=== PATIENT | female | born 1960 | race Caucasian/White ===

== ENCOUNTER 2018-02-11 03:11 | Emergency (ER) | payer MEDICARE ==
[2018-02-11 03:33] VITALS: BP 136/78; PULSE 84; RESP 16; TEMP 98.5
--- NOTE | 2018-02-11 04:14 | ED ---
Alcohol HPI - General Chief Complaint: Alcohol Stated Complaint: ETOH Time Seen by Provider: 02/11/18 03:55 Source: patient Mode of arrival: ambulatory Limitations: no limitations - History of Present Illness Initial Comments: Mary is a 57-year-old alcoholic female who presents to the emergency department today in police custody for evaluation of alcohol intoxication. Per the police they were contacted because the patient was outside of her home, her significant other would not allow her into the home states that her alcohol use is been a problem in her relationship and that her significant other is upset with her and will let her come in the home. She denies any complaints and states that she doesn't need to be in the emergency department. - Related Data Home Medications Medication Instructions Recorded Confirmed Albuterol Inhaler [Ventolin Hfa 2 puff INHALATION RT-Q4H PRN 10/29/15 02/26/17 Inhaler] Ascorbic Acid [Vitamin C] 500 mg PO DAILY 02/26/17 02/26/17 Beclomethasone Dipropionate [Qvar 1 puff INHALATION RT-BID PRN 02/26/17 02/26/17 80 mcg] DULoxetine HCL [Cymbalta] 20 mg PO HS 02/26/17 02/26/17 Ergocalciferol [Vitamin D2] 50,000 unit PO GOLDEN 02/26/17 02/26/17 HYDROcodone/APAP 10-325MG [[place] 1 tab PO TID PRN 02/26/17 02/26/17 10-325] Lansoprazole [Prevacid] 30 mg PO DAILY 02/26/17 02/26/17 Previous Rx's Medication Instructions Recorded Hydrocodone/Acetaminophen [[place] 1 each PO Q6HR PRN #12 tab 02/26/17 5-325] Allergies Allergy/AdvReac Type Severity Reaction Status Date / Time gluten AdvReac Nausea Verified 02/11/18 03:32 Review of Systems ROS Statement: Those systems with pertinent positive or pertinent negative responses have been documented in the HPI. ROS Other: All systems not noted in ROS Statement are negative. Past Medical History Past Medical History: COPD, CVA/TIA, Hypertension Additional Past Medical History / Comment(s): CVA at age 48, migranes, insomnia , colon polyps History of Any Multi-Drug Resistant Organisms: None Reported Additional Past Surgical History / Comment(s): bilat cataract removal and intraocular lens implants, coloscopy and polypectomy Past Anesthesia/Blood Transfusion Reactions: No Reported Reaction Past Psychological History: ADD/ADHD, Bipolar, Depression, Schizophrenia Smoking Status: Current every day smoker Past Alcohol Use History: None Reported Past Drug Use History: None Reported - Past Family History Father Additional Family Medical History / Comment(s): Father at age 62 from leukemia. Mother Additional Family Medical History / Comment(s): Other in her 80s from lung cancer. Patient has 7 brothers and sisters and one daughter and patient states she doesn't care and does not know anything about them. General Exam - General Exam Comments Initial Comments: Physical Exam GENERAL: Patient smells of tobacco smoke and alcohol, she is sleeping and noted to be drooling on herself, she wakes easily to voice HENT: Normocephalic, Atraumatic. EYES: PERRL, EOMI PULMONARY: Unlabored respirations. No audible rales rhonchi or wheezing was noted. CARDIOVASCULAR: There is a regular rate and rhythm without any murmurs gallops or rubs. ABDOMEN: Soft and nontender with normal bowel sounds. SKIN: Skin changes in bilateral hands consistent with tobacco abuse : Deferred NEUROLOGIC: Patient sleeping upon initial evaluation but wakes easily is alert oriented 3 Moving all extremities spontaneously MUSCULOSKELETAL: Normal extremities with adequate strength and full range of motion. No lower extremity swelling or edema. No calf tenderness. PSYCHIATRIC: Normal psychiatric evaluation. Limitations: no limitations Limitations: no limitations Course Vital Signs 02/11/18 03:26 Temperature 98.5 F Pulse Rate 84 Respiratory 16 Rate Blood Pressure 136/78 O2 Sat by Pulse 93 L Oximetry Medical Decision Making - Medical Decision Making Patient was seen and evaluated history was obtained from the patient and police Patient initially declined breathalyzer stating that she hasn't done anything wrong. Breath alcohol was obtained, patient will be sober around 8 AM. Patient declines any complaints, declines any workup Regular diet will be ordered, patient sleeping comfortably, bed rails up. Patient care is signed out to Dr. Street at sign out. Patient will be reevaluated for sobriety and discharged home when stable. rested comfortably throughout her ER stay. 8 AM the patient was sober and stable for discharge home. Disposition Clinical Impression: Alcoholic intoxication Disposition: HOME SELF-CARE Instructions: Alcohol Intoxication (ED) Is patient prescribed a controlled substance at d/c from ED?: No Referrals: Aniceto Holder MD [Primary Care Provider] - 1-2 days
== END 2018-02-11 09:00 | disposition home or self-care (01) ==
LOC: EC 03:11
DX: F10.120 Alcohol abuse with intoxication, uncomplicated (principal); J44.9 Chronic obstructive pulmonary disease, unspecified; F32.9 Major depressive disorder, single episode, unspecified; F17.200 Nicotine dependence, unspecified, uncomplicated; Z86.73 Personal history of transient ischemic attack (TIA), and cerebral infarction without residual deficits; Z86.010 Personal history of colon polyps; Z90.49 Acquired absence of other specified parts of digestive tract; Z98.890 Other specified postprocedural states; Z79.899 Other long term (current) drug therapy; Z91.018 Allergy to other foods
CPT/HCPCS: 99283

== ENCOUNTER → 2020-06-22 | Outpatient (CLI) | payer MEDICARE ==
--- NOTE | 2020-06-22 11:00 | BD ---
EXAMINATION TYPE: Axial Bone Density DATE OF EXAM: 06/22/2020 COMPARISON: 11.09.2015 CLINICAL HISTORY: 59 YR OLD FEMALE .....ICD-10 CODE: N95.1 POST MENOPAUSE Height: 65.4 Weight: 152 FRAX RISK QUESTIONS: Glucocorticoids (More than 3mos): YES (Ex: prednisone, prednisolone, methylprednisolone, dexamethasone, and hydrocortisone). History of Fracture in Adulthood: YES 3. Menopause before 45: AT 45 YRS OLD Current Tobacco Use: YES RISK FACTORS HISTORY OF: History of Wrist Fracture: LT ARM AND WRIST AN ADULT Family History of Osteoporosis: YES, MOTHER WITH HIP FX Postmenopausal woman: YES AT AGE 45 YRS OLD Hyperparathyroidism: NO Adrenal Insufficiency: NO MEDICATIONS: Prednisone or other steroids: YES, SYMBICORT, AND VENTOLIN Additional Medications: LYRICA, NORCO, CYMBALTA, MIRTAZAPINE, MOTRIN, REFLUX MEDS, STATIN FOR CHOLES TEROL, VIT D Additional History: CELIAC DISEASE, ARTHRITIS, REFLUX , CHOLESTEROL, HX OF STROKE, LT SIDE EFFECTED EXAM MEASUREMENTS: Bone mineral densitometry was performed using the Galazar System. Bone mineral density as measured about the Lumbar spine is: ----- L1-L4(G/cm2): 1.023 T Score Values are as follows: ----- L1: -1.4 ----- L2: -1.5 ----- L3: -0.5 ----- L4: -1.9 ----- L1-L4: -1.3 Bone mineral density has: Decreased -2.1% since study of: 11.09.2015 Bone mineral density about the R hip (g/cm2): 0.738 Bone mineral density about the L hip (g/cm2): 0.755 T Score values are as follows: -----R Neck: -2.3 -----L Neck: -1.6 -----R Total: -2.1 -----L Total: -2.0 Bone mineral density has: Decreased -5.3% since study of: 11.09.2015 FRAX%s: THERE IS A 48.4% CHANCE FOR A MAJOR OSTEOPOROTIC FX AND A 10.7% FOR HIP.......PROBABILITY FOR FX IN 10 YRS TIME IMPRESSION: Osteopenia remains present (T Score between -2.5 and -1). Bone density decreased or diminished from p rior. There remains slightly increased risk of fracture and the patient may be considered for treatment. Re-Screen 2-5 years. NOTE: T-SCORE=SD OF THE YOUNG ADULT MEAN.
--- NOTE | 2020-06-23 10:14 | MM ---
Reason for exam: screening (asymptomatic). Last mammogram was performed 4 years and 7 months ago. History: Patient is postmenopausal. Physical Findings: A clinical breast exam by your physician is recommended on an annual basis and results should be correlated with mammographic findings. MG Screening Mammo w CAD Bilateral CC and MLO view(s) were taken. Prior study comparison: November 09, 2015, bilateral MG 3d screening mammo w/cad. August 17, 2014, bilateral MG screening mammo w CAD. The breast tissue is extremely dense which could obscure a lesion on mammography. Benign appearing calcifications in the left breast. ASSESSMENT: Benign, BI-RAD 2 RECOMMENDATION: Routine screening mammogram of both breasts in 1 year.
== END | disposition home or self-care (01) ==
LOC: RADMAMWWP 08:44
PROVIDERS: ATTEND Family Medicine
DX: Z12.31 Encounter for screening mammogram for malignant neoplasm of breast (principal); M85.80 Other specified disorders of bone density and structure, unspecified site
CPT/HCPCS: 77067; 77080

== ENCOUNTER 2020-08-19 14:06 | Emergency (ER) | payer MEDICARE, OTHER ==
[2020-08-19] MEDS ORDERED: HYDROmorphone 0.5 MG/0.5 ML SYRINGE IVP STA ×2 (14:19→15:47)
[2020-08-19] MEDS ORDERED: ONDANSETRON 4 MG/2 ML VIAL IVP STA (14:19)
[2020-08-19 14:21] VITALS: RESP 18; TEMP 98
--- NOTE | 2020-08-19 14:30 | ED ---
Upper Extremity HPI - General Chief Complaint: Extremity Injury, Upper Stated Complaint: Fall/Right hand injury Time Seen by Provider: 08/19/20 14:09 Source: patient, EMS, RN notes reviewed Mode of arrival: EMS Limitations: no limitations - History of Present Illness Initial Comments: This a 59-year-old female presents emergency Department chief complaint right arm injury. Patient states she was sitting in a wheelchair at the night to [place] when she went to get up and states that she tripped over the foot rest. Patient states that she fell onto her right wrist. She does have an abrasion on her nose but denies any headache, loss conscious, dizziness, neck pain. She is [id number]. There is noted deformity to her right wrist. Patient was not given any pain meds prior arrival. - Related Data Home Medications Medication Instructions Recorded Confirmed Albuterol Inhaler [Ventolin Hfa 1 puff INHALATION RT-Q6H PRN 08/19/20 08/19/20 Inhaler] Budesonide/Formoterol Fumarate 2 puff INHALATION RT-BID 08/19/20 08/19/20 [Symbicort 160-4.5 Mcg Inhaler] DULoxetine HCL [Cymbalta] 120 mg PO DAILY 08/19/20 08/19/20 Hydrocodone/Acetaminophen [[place] 1 tab PO Q8H PRN 08/19/20 08/19/20 5-325] Hydrocortisone Cream 1 applic TOPICAL BID 08/19/20 08/19/20 [Hydrocortisone 1% Cream] Ibuprofen [Motrin] 800 mg PO AC-TID 08/19/20 08/19/20 Loratadine 10 mg PO DAILY 08/19/20 08/19/20 Mirtazapine 30 mg PO HS 08/19/20 08/19/20 Pregabalin [Lyrica] 300 mg PO BID 08/19/20 08/19/20 Varenicline [Chantix Starter Pack] See Taper PO DIRECTED 08/19/20 08/19/20 cloNIDine HCL [Catapres] 0.1 mg PO HS 08/19/20 08/19/20 Allergies Allergy/AdvReac Type Severity Reaction Status Date / Time gluten AdvReac Nausea Verified 08/19/20 15:11 Review of Systems ROS Statement: Those systems with pertinent positive or pertinent negative responses have been documented in the HPI. ROS Other: All systems not noted in ROS Statement are negative. Past Medical History Past Medical History: COPD, CVA/TIA, Hypertension Additional Past Medical History / Comment(s): CVA at age 48, migranes, insomnia, colon polyps History of Any Multi-Drug Resistant Organisms: None Reported Additional Past Surgical History / Comment(s): bilat cataract removal and intraocular lens implants, coloscopy and polypectomy Past Anesthesia/Blood Transfusion Reactions: No Reported Reaction Past Psychological History: ADD/ADHD, Bipolar, Depression, Schizophrenia Smoking Status: Current every day smoker Past Alcohol Use History: None Reported Past Drug Use History: None Reported - Past Family History Father Additional Family Medical History / Comment(s): Father at age 62 from leukemia. Mother Additional Family Medical History / Comment(s): Other in her 80s from lung cancer. Patient has 7 brothers and sisters and one daughter and patient states she doesn't care and does not know anything about them. General Exam General appearance: alert, in no apparent distress Head exam: Present: atraumatic, normocephalic, normal inspection Eye exam: Present: normal appearance, PERRL, EOMI. Absent: scleral icterus, conjunctival injection, periorbital swelling ENT exam: Present: normal oropharynx, mucous membranes moist. Absent: normal exam (Small nasal abrasion) Neck exam: Present: normal inspection, full ROM. Absent: tenderness, lymph adenopathy Respiratory exam: Present: normal lung sounds bilaterally. Absent: respiratory distress, wheezes, rales, rhonchi, stridor Cardiovascular Exam: Present: regular rate, normal rhythm, normal heart sounds. Absent: systolic murmur, diastolic murmur, rubs, gallop, clicks Extremities exam: Present: other (Right wrist there is moderate swelling, slight deformity to the distal forearm, wrist region, neurovascular intact tenderness with palpation no tenderness proximal or distal cap refill less than 2 seconds) Neurological exam: Present: alert, reflexes normal. Absent: motor sensory deficit Skin exam: Present: warm, dry, intact, normal color. Absent: rash Course Vital Signs 08/19/20 14:07 Temperature 98 F Pulse Rate 100 Respiratory 18 Rate Blood Pressure 172/95 O2 Sat by Pulse 95 Oximetry Procedures - Orthopedic Splinting/Casting Injury #1 Side: right Upper Extremity Injury Location: short arm, wrist Upper Extremity Immobilizer: volar splint, synthetic pre-padded splint Medical Decision Making - Medical Decision Making X-ray review shows evidence of distal radius fracture case discussed with samir cedeno on-call for orthopedics recommends patient be splinted and will follow-up in office of Dr. Courtney in the morning. Disposition Clinical Impression: Distal radius fracture, right Disposition: HOME SELF-CARE Condition: Stable Instructions (If sedation given, give patient instructions): Arm Fracture in Adults (ED) Additional Instructions: Please return to the Emergency Department if symptoms worsen or any other concerns. Is patient prescribed a controlled substance at d/c from ED?: No Referrals: Mars Lane MD [Primary Care Provider] - 1-2 days Vick Courtney DO [Doctor of Osteopathic Medicine] - 1-2 days Time of Disposition: 15:41
--- NOTE | 2020-08-19 15:18 | XR ---
EXAMINATION TYPE: XR wrist complete RT DATE OF EXAM: 08/19/2020 CLINICAL HISTORY: Pain after fall injury. TECHNIQUE: Frontal, lateral and oblique images of the right wrist are obtained. 4 view scaphoid vie w is performed. COMPARISON: Right wrist x-ray dated 05/01/2014. FINDINGS: Demineralization is present. Acute comminuted impacted intraarticular fracture distal rad ius with dorsal angulation of distal fracture fragment is present. Carpal joint spaces are preserved. Age indeterminate 7 mm avulsion type fracture from ulnar styloid is fairly well corticated but new f rom 2015 study. Focal mild to moderate soft tissue swelling or deformity noted. IMPRESSION: There is acute comminuted impacted intra-articular fracture distal radial meta-epiphysis .
[2020-08-19] MEDS ORDERED: ACET/COD 300 MG/30 MG STARTER PACK 6 TAB BTL PO STA (15:41)
[2020-08-19 16:03] VITALS: BP 153/86; PULSE 80
== END 2020-08-19 16:06 | disposition home or self-care (01) ==
LOC: EC 14:06
DX: S52.571A Other intraarticular fracture of lower end of right radius, initial encounter for closed fracture (principal); S00.31XA Abrasion of nose, initial encounter; J44.9 Chronic obstructive pulmonary disease, unspecified; I10 Essential (primary) hypertension; F31.9 Bipolar disorder, unspecified; F17.200 Nicotine dependence, unspecified, uncomplicated; Z86.73 Personal history of transient ischemic attack (TIA), and cerebral infarction without residual deficits; Z79.51 Long term (current) use of inhaled steroids; Z79.899 Other long term (current) drug therapy; Z91.048 Other nonmedicinal substance allergy status
CPT/HCPCS: 29125; 96374; 96375; 96376; 99283

== ENCOUNTER 2020-08-21 11:59 | Day surgery (SDC) | payer MEDICARE ==
[2020-08-20 14:08] VITALS: BMI 22.8
--- NOTE | 2020-08-21 08:47 | P.HPOR ---
History of Present Illness H&P Date: 08/20/20 Chief Complaint: Right wrist pain 59 yo female sustained a ffs on 08/19/20 and presented to the ED at [facility] for evaluation. She c/o wrist pain and deformity. Stated that she tripped and fell onto her wrist. Denied any LOC or BHT. Right wrist pain with deformity noted. She is RHD. She stated she broke this wrist when she was young and just broke her left wrist 2 years ago. She was evaluated in the ED and sent home in a splint. She presents today in the office for evaluation. She has a well fitted splint in place. She c/o pain in her wrist as well as some decreased sensation in the tips of her fingers. The splint was loosened and she stated this helped. She denies any other injury. No other symptoms. Denies any f/c/sob/cp at this time. Review of Systems 14 points review of systems completed and as stated in HPI, all other systems reviewed are negative. Past Medical History Past Medical History: COPD, CVA/TIA, Hypertension Additional Past Medical History / Comment(s): current fx rt wrist, arm in halfcast with patt wrap, CVA at age 48, states has some issues with memory and writing since, past hx of migraines, insomnia, colon polyps History of Any Multi-Drug Resistant Organisms: None Reported Additional Past Surgical History / Comment(s): bilat cataract removal and intraocular lens implants, colonoscopy and polypectomy Past Anesthesia/Blood Transfusion Reactions: No Reported Reaction Smoking Status: Current every day smoker - Past Family History Father Additional Family Medical History / Comment(s): Father at age 62 from leukemia. Mother Additional Family Medical History / Comment(s): Other in her 80s from lung cancer. Patient has 7 brothers and sisters and one daughter and patient states she doesn't care and does not know anything about them. Medications and Allergies Home Medications Medication Instructions Recorded Confirmed Type Albuterol Inhaler [Ventolin Hfa 1 puff INHALATION RT-Q6H PRN 08/19/20 08/20/20 History Inhaler] Budesonide/Formoterol Fumarate 2 puff INHALATION RT-BID 08/19/20 08/20/20 History [Symbicort 160-4.5 Mcg Inhaler] DULoxetine HCL [Cymbalta] 120 mg PO QAM 08/19/20 08/20/20 History Hydrocodone/Acetaminophen [[place] 1 tab PO Q8H PRN 08/19/20 08/20/20 History 5-325] Hydrocortisone Cream 1 applic TOPICAL BID 08/19/20 08/20/20 History [Hydrocortisone 1% Cream] Ibuprofen [Motrin] 800 mg PO AC-TID 08/19/20 08/20/20 History Loratadine 10 mg PO DAILY 08/19/20 08/20/20 History Mirtazapine 30 mg PO HS 08/19/20 08/20/20 History Pregabalin [Lyrica] 300 mg PO BID 08/19/20 08/20/20 History Varenicline [Chantix Starter Pack] See Taper PO DIRECTED 08/19/20 08/20/20 History cloNIDine HCL [Catapres] 0.1 mg PO HS 08/19/20 08/20/20 History Allergies Allergy/AdvReac Type Severity Reaction Status Date / Time gluten AdvReac Nausea Verified 08/20/20 13:59 Physical Examination Osteopathic Statement: *. No significant issues noted on an osteopathic structural exam other than those noted in the History and Physical/Consult. Patient is alert and oriented 3 appears well-nourished well-hydrated is in no acute distress. They does not appear septic. On exam the patient has no tenderness to palpation of her thoracic or lumbar spine. There is no edema or ballottement sign. They have good strength in her lower extremities with 5 out of 5 dorsiflexion plantar flexion EHL and FHL bilaterally. Upper extremities s how 5/5 strength in all major muscle groups. There is FROM that is painless of the b/l UE and LE in all major joints. They are intact to light touch sensation in L2 to S1 nerve distribution. Patient has palpable dorsalis pedis was posterior tibial pulses. Compartments are soft and compressible. Patient shows a negative Homans, Garcia's, negative Babinski's negative clonus bilaterally. negative straight leg raise bilaterally. No tensioning signs.Cranial nerves II through XII are grossly intact. Overall alignment is well-maintained in the sagittal coronal planes. [place] extremity exam. Right upper extremity is in a splint that is well formed and well molded. Patient has brisk capillary refill in all fingers. She is able to move DIP joints of all fingers. She does complain of some decreased 2 point and pinprick sensation in the index and thumb. The splint was loosened and she stated that this helped a little bit. She denies any other numbness or tingling. She denies any fevers chills shortness of breath or chest pain. She has some swelling about her fingers. Results Right wrist films demonstrate a intra-articular distal radius fracture that is dorsally displaced comminuted and dorsally angulated about 20. There is also a fracture line that extends proximally from the metadiaphyseal region approximately 5 cm. Is only visible on one view however is likely a propagation of the fracture proximally. No other fractures or dislocations are identified no other bony prominence abnormalities. Assessment and Plan Assessment: 59-year-old female status post fall from standing right distal radius fracture, intra-articular, closed, 2 part, comminuted, displaced Plan: Orthopedic Surgery Risk Review Mary Quiroz is a 59-year-old [id number] female presenting for evaluation of sudden onset wrist pain pain, inability to bear weight after a fall from standing onto her right wrist. It was my pleasure to have seen and examined Mary Quiroz . In our visit today we have had a chance to go over subjective complaints, physical examination findings and treatments including the natural course history without intervention and various interventional options. Her imaging demonstrates right distal radius fracture. On physical exam, Mary Quiroz demonstrates pain with motion of extreme pain, which is NV intact at this time. I have explained to the patient that this fracture needs stabilization. Based on the patients imaging, physical exam, and the rapid progression and disabling nature of her symptoms, at this time I recommend surgery in the form or a: ORIF right distal radius I discussed the risk and benefits of this procedure at length with Mary Quiroz . Questions were invited and answered, and the patient wishes to proceed as outlined below. Currently, I am recommendin. Open reduction and internal fixation right distal radius 2. Review of surgical risks and benefits as well as an educational packet on the proposed surgical procedure. Risks: All surgical procedures come with inherent risks, including those related to positioning, anesthesia, intraoperative findings, and postoperative complications. It is important to understand that surgery does not come with any guarantee of a successful outcome as complications and adverse events are always possible. The patient was given a handout discussing the surgical procedure and risks associated with the intervention, both of which were discussed with the patient. These risks include but are not limited to the following: - Experiencing same, different or even worse symptoms compared to before surgery. - Requiring further surgery or other forms of treatment presently or at some time in the future . - On an extreme but fortunately relatively rare basis severe complication such as blindness, stroke, heart attack, temporary and/or permanent nerve injury, paralysis, coma, or may occur, sometimes without known explanation. - Surgical complications may include but are not limited to risk of infection, fluid accumulation in the surgical dissection site, including a seroma or hematoma, that requires additional surgery, wound drainage, bleeding, new numbness or weakness, vision changes/loss, spinal fluid leakage, non-healing and/or infected incision, headaches, difficulty or inability to swallow, hoarseness, hemopneumothorax, pneumothorax, injury to nerves, spinal cord, blood vessels, lymphatics or other vital organs (i.e., bowel injury, injury to the great vessels); heterotopic bone formation; complications related to the hardware such as screws, rods, including misplaced hardware, device failure, hardware fracture/breakage, or hardware loosening; retained surgical instrumentations or devices and the need for further surgery. - Medical risks of the planned surgery include but are not limited to generalized Infections to the whole body or local areas outside of the surgical site (sepsis), heart attack, bleeding, anaphylaxis, meningitis, seizure, epilepsy, hearing loss, burn bowen, laceration of the head or other areas of the body, bruising, hypersensitivity of the skin, bladder over distension; allergic reaction; shoulder injury related to positioning; fat, blood and air clots to other areas of the body like heart, lungs, brain; failure of internal organs such as lungs, kidneys, liver and excessive bleeding. If blood transfusions are necessary, note that transfusions may cause intolerance reactions such as anaphylaxis or other complex reactions. Despite best efforts, the results of surgery might not heal in terms of bone, soft tissues such as skin, fascia, ligaments, and joints. [facility] is an educational center that serves as a training facility for physician assistants, nurses, orthopedic residents and fellows. Residents are physicians who are completing their surgical intensive training following medical school. They assist in the operating room with direct supervision of the attending surgeons. [place] are surgeons who have completed their training and eligible for board certification. They have opted for an elective year of more specialized training in their field. They assist in the operating room under the supervision of the attending surgeons. Physician assistants are [place] dically trained surgical providers who function in the outpatient, inpatient, and operating room setting under the direct supervision of the attending surgeon. [facility] has multiple operating rooms with single and overlapping rooms running daily. They currently function under the required guidelines as produced by the [facility] Finance Committee with regards to the overlapping rooms and will continue to comply with changes to this policy as they occur. The requirements include and are complied with as follows: (1) the critical portions of the overlapping rooms will not occur at the same time, (2) the attending physician will be physically present during the critical portions of the procedure and immediately available during the entire case, and (3) a back-up attending is designated should the primary attending not be immediately available. The patient has had a chance to review all the listed information, has been given print outs detailing this information, and has had all his/her questions answered to their satisfaction. It was my pleasure to have seen and examined Mary Quiroz . In our visit today we have had a chance to go over my understanding of our patient's current condition, the natural course history without intervention and various interventional options. Questions were invited and answered, and the patient wishes to proceed as outlined above. I have seen and examined the patient for 25 minutes and we have spent more than 50% of the time in repeat and detailed counseling about the patient's condition, its natural course history with out and as much as can be predicted with surgery and re-review of various surgical treatment options. In conclusion, Mary Quiroz requested we proceed with the above suggested surgery and are willing to accept risks and limitations of the suggested surgery as nature of the disease process and our best attempts at treatment for the condition. Thank you again for allowing us to be part of your patient's care. Please don't hesitate to contact me if you have any further questions. Signed and authenticated by: Vick Courtney DO [facility] [address] [facility], [address] [address] Time with Patient: Greater than 30
--- NOTE | 2020-08-21 10:07 | XR ---
EXAMINATION TYPE: XR chest 1V DATE OF EXAM: 08/21/2020 COMPARISON: Chest x-ray 09/02/2015 HISTORY: Preop testing TECHNIQUE: Single frontal view of the chest is obtained. FINDINGS: There is underlying emphysema. Prominent lung volumes are again noted. Cardiac mediastinal silhouette is stable. No evident airspace disease, pneumothorax, or pleural effusion. IMPRESSION: Emphysema
[2020-08-21 10:54] LABS: African American GFR (CKD) >90 (>60 ml/min/1.73 sqM); Anion Gap 7 mmol/L; Blood Urea Nitrogen 16 mg/dL (7-17); Carbon Dioxide 23 mmol/L (22-30); Chloride 102 mmol/L (98-107); Non-African American GFR(CKD) >90 (>60 ml/min/1.73 sqM); Potassium 4.8 mmol/L (3.5-5.1); Sodium 132 mmol/L (137-145)
[2020-08-21 10:58] LABS: Anisocytosis Moderate; Basophils % (A) 1 %; Eosinophils # (A) 0.1 k/uL (0-0.7); Eosinophils % (A) 2 %; HCT 31.7 % (34.0-46.0); HGB 9.5 gm/dL (11.4-16.0); Hypochromasia Marked; Lymphocytes # (A) 0.8 k/uL (1.0-4.8); Lymphocytes % (A) 13 %; MCH 22.5 pg (25.0-35.0); MCHC 29.8 g/dL (31.0-37.0); MCV 75.4 fL (80.0-100.0); Mean Platelet Volume 7.7; Microcytosis Marked; Monocytes # (A) 0.6 k/uL (0-1.0); Monocytes % (A) 10 %; Neutrophils # (A) 4.4 k/uL (1.3-7.7); Neutrophils % (A) 72 %; Platelet Count 473 k/uL (150-450); RDW 21.8 % (11.5-15.5); WBC 6.1 k/uL (3.8-10.6)
[2020-08-21 11:04] LABS: INR 0.9 (<1.2); Prothrombin Time 10.2 sec (9.0-12.0)
[~2020-08-21 11:59] MED LIST: ACETAMINOPHEN TAB 500 MG TAB PO PRN; ONDANSETRON 4 MG/2 ML VIAL IVP PRN; fentaNYL (PF) 50 MCG/ML 2 ML AMP IVP ONE
[2020-08-21] MEDS ORDERED: MIDAZOLAM 2 MG/2 ML VIAL ONE (12:11)
[2020-08-21] MEDS ORDERED: ROPIVACAINE 5 MG/ML 30 ML VIAL ONE (12:11)
[2020-08-21] MEDS ORDERED: LIDOCAINE 1% INJ 10MG/ML (20 ML MDV) ONE (12:11)
[2020-08-21] MEDS ORDERED: LIDOCAINE 2%-EPI 1:100,000 20 ML VIAL ONE (12:11)
[2020-08-21] MEDS ORDERED: PROPOFOL 10 MG/ML 20 ML VIAL IV ONE (12:11)
[2020-08-21] MEDS ORDERED: fentaNYL (PF) 50 MCG/ML 2 ML AMP ONE (12:11)
[2020-08-21] MEDS ORDERED: SUCCINYLCHOLINE CHLORIDE 100 MG/5 ML SYR IV ONE (12:11)
[2020-08-21] MEDS ORDERED: IV FLUID CONTINUATION 1,000 ML IV ONE (12:14)
[2020-08-21] MEDS ORDERED: LACTATED RINGERS 1,000 ML IV ONE (13:07)
[2020-08-21 15:22] VITALS: RESP 16; TEMP 98.1
--- NOTE | 2020-08-21 15:54 | P.ANPRN ---
Procedure Note - Anesthesia - Nerve Block Performed Right Supraclavicular Single Time Out Performed: Yes Date of Procedure: 08/21/20 Procedure Start Time: 11:34 Procedure Stop Time: 11:42 Location of Patient: PreOp Indication: Requested by Surgeon Specifically requested for management of pain by DrChris: Vick Courtney Sedation Type: Awake Preparation: Sterile Prep Position: Supine Needle Types: Pajunk Needle Gauge: 21 Ultrasound used to visualize needle placement: Yes Ultrasound used to observe medication spread: Yes Injectate: 0.5% Ropivacaine (see comment for volume) (15 ml + lidocain 1% with epi 1/100 k 10 ml) Blood Aspirated: No Pain Paresthesia on Injection Noted: No Resistance on Injection: Normal Image Stored and Saved: Yes Events: Uneventful and Well Tolerated
[2020-08-21] MEDS ORDERED: HYDROcodone/APAP 7.5-325MG 1 EACH TAB PO ONE (16:21)
--- NOTE | 2020-08-21 16:26 | P.PN ---
Progress Note - Text Progress Note Date: 08/21/20 Patient was evaluated at bedside in the pediatric unit. She is resting comfortably. She's been up and ambulating, she's use the restroom and no difficulty She is utilizing the splint with the arm sling at this time. She is able to wiggle the fingers with no difficulty. She does note some tingling in the fingers stil but it is improving Patient stable for discharge home today. She has [place] 7.5 mg/325 mg as prescribed in the office yesterday. Splint instructions along with activity le jenni and restrictions were discussed.
--- NOTE | 2020-08-21 16:30 | P.DS ---
Providers Date of admission: 08/21/2020 Expected date of discharge: 08/21/20 Attending physician: Vick Courtney DO Primary care physician: Stated None Hospital Course: Date of admission: 08/21/2020 Date of discharge: 08/21/2020 Admission diagnosis: Right distal radius fracture, closed, intra-articular, displaced, comminuted Discharge diagnosis: Status post ORIF right distal radius fracture Attending physician: Dr. Courtney Surgical procedures: Open reduction internal fixation right distal radius fracture Brief history: Patient is a 59-year-old female who was evaluated in the outpatient setting by Dr. Courtney afternoon injury occurred to her right wrist. Patient was initially seen at [facility], she was determined to have a right distal radius fracture. She was splinted and recommended to follow up with orthopedics. After evaluation in the outpatient setting, was turned surgical fixation would be the best option for the patient. She was scheduled for surgery for 08/21/2020. Hospital course: Details of patient's surgery can be found in operative report. Patient tolerated the procedure well and was subsequently transported to orthopedic floor. Patient reported satisfactory pain control with oral pain medications by postoperative day 0. Patient showed satisfactory progress with physical therapy. Patient moved steadily through the program and had no difficulty meeting the goals by postoperative day 0. Given patient's otherwise satisfactory course and having met physical therapy goals, plan is to discharge patient home on postoperative day 0. Discharge condition/disposition: Patient will be discharged home in stable condition. Discharge medications: Instructions are given on resumption of patient's normal daily medications per primary care recommendation, in addition patient will be prescribed no new medications. Discharge instructions: Utilize arm splint, do not remove splint. Keep splint covered and dry while showering Follow up in office at 2 weeks postop with Benjamin Gonzalez PA-C/Nikhil Lobo PA-C Follow up with your primary care doctor 7-10 days after discharge. Contact [facility] with any questions, . Procedures: Open reduction internal fixation right distal radius fracture Patient Condition at Discharge: Good Plan - Discharge Summary Discharge Rx Participant: Yes New Discharge Prescriptions: No Action Mirtazapine 30 mg PO HS cloNIDine HCL [Catapres] 0.1 mg PO HS Pregabalin [Lyrica] 300 mg PO BID Loratadine 10 mg PO DAILY Ibuprofen [Motrin] 800 mg PO AC-TID Hydrocortisone Cream [Hydrocortisone 1% Cream] 1 applic TOPICAL BID Hydrocodone/Acetaminophen [[place] 5-325] 1 tab PO Q8H PRN PRN Reason: Pain DULoxetine HCL [Cymbalta] 120 mg PO QAM Varenicline [Chantix Starter Pack] See Taper PO DIRECTED Budesonide/Formoterol Fumarate [Symbicort 160-4.5 Mcg Inhaler] 2 puff INHALA TION RT-BID Albuterol Inhaler [Ventolin Hfa Inhaler] 1 puff INHALATION RT-Q6H PRN PRN Reason: Shortness Of Breath Discharge Medication List Albuterol Inhaler [Ventolin Hfa Inhaler] 1 puff INHALATION RT-Q6H PRN 08/19/20 [History] Budesonide/Formoterol Fumarate [Symbicort 160-4.5 Mcg Inhaler] 2 puff INHALATION RT-BID 08/19/20 [History] DULoxetine HCL [Cymbalta] 120 mg PO QAM 08/19/20 [History] Hydrocodone/Acetaminophen [[place] 5-325] 1 tab PO Q8H PRN 08/19/20 [History] Hydrocortisone Cream [Hydrocortisone 1% Cream] 1 applic TOPICAL BID 08/19/20 [History] Ibuprofen [Motrin] 800 mg PO AC-TID 08/19/20 [History] Loratadine 10 mg PO DAILY 08/19/20 [History] Mirtazapine 30 mg PO HS 08/19/20 [History] Pregabalin [Lyrica] 300 mg PO BID 08/19/20 [History] Varenicline [Chantix Starter Pack] See Taper PO DIRECTED 08/19/20 [History] cloNIDine HCL [Catapres] 0.1 mg PO HS 08/19/20 [History] Follow up Appointment(s)/Referral(s): Vick Courtney DO [Doctor of Osteopathic Medicine] - 2 Weeks Activity/Diet/Wound Care/Special Instructions: Discharge instructions: 1. Do not remove the splint, utilize arm sling 2. Keep splint covered and dry while showering 3. Pain medication as needed 4. Ice and elevate often 5. Plan for [facility] at [facility] 2 weeks for recheck Discharge Disposition: HOME SELF-CARE
[2020-08-21 16:35] VITALS: BP 151/74; PULSE 98
--- NOTE | 2020-08-22 08:21 | XR ---
EXAMINATION TYPE: XR wrist limited RT, FL guidance operating room DATE OF EXAM: 08/21/2020 COMPARISON: Plain film 08/19/2020 HISTORY: Fracture Fluoroscopy support supplied to the referring clinician. See dictated report from orthopedic surgery , 52 seconds fluoroscopy time, 3 intraoperative C-arm images document the procedure
--- NOTE | 2020-08-23 09:47 | P.OP ---
Date of Procedure: 08/21/20 Preoperative Diagnosis: Right distal radius fracture, two part, intraarticular, displaced, shortened, closed. Postoperative Diagnosis: Right distal radius fracture, two part, intraarticular, displaced, shortened, closed. Procedure(s) Performed: open reduction and internal fixation of right distal radius Implants: synthese volar distal locking plate Anesthesia: MAC, regional Surgeon: Vick Courtney Intermodal Dispatcher #1: Kali Gonzalez (was present for the entire case and necessary due to the complexity of the case. ) Estimated Blood Loss (ml): 25 IV fluids (ml): 1,000 Urine output (ml): 0 Pathology: none sent Condition: stable Disposition: PACU Indications for Procedure: 59 yo female sustained a ffs on 08/19/20 and presented to the ED at [facility] for evaluation. She c/o wrist pain and deformity. Stated that she tripped and fell onto her wrist. Denied any LOC or BHT. Right wrist pain with deformity noted. She is RHD. She stated she broke this wrist when she was young and just broke her left wrist 2 years ago. She was evaluated in the ED and sent home in a splint. She presents today in the office for evaluation. She has a well fitted splint in place. She c/o pain in her wrist as well as some decreased sensation in the tips of her fingers. The splint was loosened and she stated this helped. She denies any other injury. No other symptoms. Denies any f/c/sob/cp at this time. Operative Findings: displaced distal radicus fracture right two part intraarticular. Description of Procedure: The patient was seen and examined in the preoperative area. All preoperative protocols were followed. Informed consent was obtained risks and benefits of the procedure were discussed at length. Risks including bleeding infection damage to the surrounding tissue and risk of reoperation were discussed with the patient. Risk of anesthesia up to and including was a discussed with the patient. These are outlined in the risk reviewed. They were willing to accept these risks and all of the risks of surgery. The patient was given a weight- based dose of antibiotics in the form of 2 g Ancef IVPB 1. The patient was seen and evaluated by the anesthesia team who deemed them fit for surgery. The site was marked, the patient was willing to proceed with the procedure. The patient was transferred to the operative suite by the Department of anesthesia. There were then drifted off to sleep by the department of anesthesia and regional anesthesia with LMA anesthesia was used. Once adequate anesthesia had been obtained the patient was carefully transferred to the operative bed. All bony prominences were padded accordingly. SCDs were placed on the nonoperative lower extremities. Arms were well padded. Right arm was exposed 18 tourniquet was placed on the right upper arm which is well-padded 10:15 drape was placed from this. Patient's arm was placed on arm board. Preoperative briefing was done with the operative team and everyone was ready for the procedure to start. The patients right arm was then prepped and draped in the normal sterile fashion. Timeout was then performed and all parties in agreement with the procedure to be performed. Standard volar [place] approach to the right distal radius was performed. Once we reached the pronator it was incarcerated in the fracture fragment and we had to remove this and release it. Once pronator was released material to reduce the fracture with the [place] elevator. We took AP and lateral x-rays which confirmed good flat fracture reduction. We then placed a radial styloid pin to hold reduction of the fracture. Selected a 6-hole distal radius volar locking plate. This was chosen due to the propagation of the fracture proximally. We then placed this plate under AP and lateral fluoroscopy and it was pinned into position once in position a single shaft screw was placed in the variable hole and locked down. This was confirmed good position on AP lateral fluoroscopy. We then placed a nonlocking screw in the distal row to help with volar tilt on reduction this held a good volar tilt for reduction within drilled and placed under fluoroscopic guidance the distal row with smooth locking pegs. We then replaced the cortical screw with a smooth locking peg in the distal row were then drilled the proximal row and placed smooth locking pegs. These were all confirmed to be in good position and good length and out of the joint on a 30 lateral and on AP and lateral fluoroscopy. We then turned our attention to the shaft for replaced shaft screws measuring each with a depth gauge. Once these were in place and confirmed in good position and locked down to final AP and lateral fluoroscopic images which confirmed good reduction of fracture good placement of the hardware. 30 lateral confirmed no intra-articular hardware placement. We then copiously irrigated the wound with normal sterile saline. The wound was then closed with 2-0 Vicryl in a running 2-0 nylon. Tourniquet was released at 60 minutes there is no overt bleeding. Patient placed in a volar splint and dressed sterilely with Adaptic 4 x 4's and Kerlix. The patient was then transferred back to their hospital bed. There were awakened by department of anesthesia having tolerated the procedure very well with no complications. The patient was then transported to the postoperative care unit in stable condition.
== END 2020-08-21 16:59 | disposition home or self-care (01) ==
LOC: OR 11:59 → 6PED 12:04 → OR 16:59
PROVIDERS: ATTEND Orthopaedic Surgery
DX: S52.571A Other intraarticular fracture of lower end of right radius, initial encounter for closed fracture (principal); W01.0XXA Fall on same level from slipping, tripping and stumbling without subsequent striking against object, initial encounter; J44.9 Chronic obstructive pulmonary disease, unspecified; I10 Essential (primary) hypertension; I69.311 Memory deficit following cerebral infarction; G47.00 Insomnia, unspecified; Z86.010 Personal history of colon polyps; Z98.42 Cataract extraction status, left eye; Z98.41 Cataract extraction status, right eye; Z96.1 Presence of intraocular lens; Z98.890 Other specified postprocedural states; F17.200 Nicotine dependence, unspecified, uncomplicated; Z80.6 Family history of leukemia; Z80.1 Family history of malignant neoplasm of trachea, bronchus and lung; Z79.1 Long term (current) use of non-steroidal anti-inflammatories (NSAID); Z79.51 Long term (current) use of inhaled steroids; Z79.899 Other long term (current) drug therapy; Z91.02 Food additives allergy status
CPT/HCPCS: 25608; 64415; 76942; 80051; 82565; 84520; 85025; 85610; 73100; 71045; C1713; J2250; J0690; J2001; J3010; J2795; J0330; J2704; 93005

== ENCOUNTER → 2021-06-25 | Outpatient (CLI) | payer MEDICARE ==
[2021-06-25 14:09] LABS: Basophils # (A) 0.02 X 10*3/uL (0.00-0.10); Basophils % (A) 0.5 %; Eosinophils # (A) 0.05 X 10*3/uL (0.04-0.35); Eosinophils % (A) 1.2 %; HCT 39.7 % (37.2-46.3); HGB 13.3 g/dL (12.0-15.0); Immature Grans, Automated 0.2 %; Lymphocytes # (A) 1.31 X 10*3/uL (0.90-5.00); Lymphocytes % (A) 31.6 %; MCH 30.4 pg (27.0-32.0); MCHC 33.5 g/dL (32.0-37.0); MCV 90.6 fL (80.0-97.0); Monocytes # (A) 0.52 X 10*3/uL (0.20-1.00); Monocytes % (A) 12.5 %; NRBC Per 100 WBC 0 /100 WBCS (0.0-0.0); Neutrophils # (A) 2.24 X 10*3/uL (1.80-7.70); Platelet Count 337 X 10*3/uL (140-440); RBC 4.38 X 10*6/uL (4.10-5.20); RDW 12.3 % (11.5-14.5); WBC 4.15 X 10*3/uL (4.50-10.00)
[2021-06-25 17:30] LABS: ALT 19 U/L (8-44); AST 19 U/L (13-35); African American GFR (CKD) 109.1 (60.0-200.0); Albumin 4.6 g/dL (3.8-4.9); Alkaline Phosphatase 52 U/L (41-126); BUN/Creat Ratio 8.86 Ratio (12.00-20.00); Blood Urea Nitrogen 6.2 mg/dL (9.0-27.0); Carbon Dioxide 24.1 mmol/L (20.0-27.5); Chloride 87 mmol/L (96-109); Chol/HDL Ratio 2.92 Ratio; Glucose 117 mg/dL (70-110); LDL Cholesterol,Calculated 86.9 mg/dL (0.0-131.0); Non-African American GFR(CKD) 94.2 (60.0-200.0); Sodium 122 mmol/L (135-145); Total Protein 6.6 g/dL (6.2-8.2)
== END | disposition home or self-care (01) ==
LOC: LABWHC1 09:59
PROVIDERS: ATTEND Family Medicine
DX: I10 Essential (primary) hypertension (principal); G47.00 Insomnia, unspecified; G62.9 Polyneuropathy, unspecified
CPT/HCPCS: 36415; 80053; 80061; 84443; 85025

== ENCOUNTER → 2021-07-11 | Outpatient (CLI) | payer MEDICARE ==
--- NOTE | 2021-07-13 09:32 | MM ---
Reason for exam: screening (asymptomatic). Last mammogram was performed 1 year and 1 month ago. History: Patient is postmenopausal. Physical Findings: A clinical breast exam by your physician is recommended on an annual basis and results should be correlated with mammographic findings. MG 3D Screening Mammo W/Cad Bilateral CC and MLO view(s) were taken. Prior study comparison: June 22, 2020, bilateral MG screening mammo w CAD. November 09, 2015, bilateral MG 3d screening mammo w/cad. The breast tissue is heterogeneously dense. This may lower the sensitivity of mammography. No significant changes when compared with prior studies. ASSESSMENT: Negative, BI-RAD 1 RECOMMENDATION: Routine screening mammogram of both breasts in 1 year.
== END | disposition home or self-care (01) ==
LOC: RADMAMWWP 16:09
PROVIDERS: ATTEND Family Medicine
DX: Z12.31 Encounter for screening mammogram for malignant neoplasm of breast (principal); Z78.0 Asymptomatic menopausal state
CPT/HCPCS: 77063; 77067

== ENCOUNTER → 2021-11-30 | Outpatient (CLI) | payer MEDICARE ==
[2021-11-30 10:48] LABS: African American GFR (CKD) 115.1 (60.0-200.0); BUN/Creat Ratio 12.47 Ratio (12.00-20.00); Blood Urea Nitrogen 7.3 mg/dL (9.0-27.0); Calcium 9.1 mg/dL (8.7-10.3); Carbon Dioxide 25.2 mmol/L (20.0-27.5); Chloride 91 mmol/L (96-109); Glucose 111 mg/dL (70-110); Non-African American GFR(CKD) 99.3 (60.0-200.0); Potassium 4.5 mmol/L (3.5-5.5); Sodium 127 mmol/L (135-145)
[2021-11-30 12:55] LABS: Appearance,Urine Clear (Clear); Bilirubin,Urine Negative (Negative); Blood,Urine Negative (Negative); Color,Urine Dark Yellow (Yellow); Ketones,Urine Trace mg/dL (Negative); Nitrite,Urine Negative (Negative); Specific Gravity,Urine 1.024 (1.001-1.030)
[2021-11-30 14:23] LABS: Bacteria,Urine None Seen /HPF (None Seen)
== END | disposition home or self-care (01) ==
LOC: LABWHC1 07:59
PROVIDERS: ATTEND Family Medicine
DX: E87.1 Hypo-osmolality and hyponatremia (principal)
CPT/HCPCS: 36415; 80048; 81001; 82024; 82533; 83935; 84300; 84443

== ENCOUNTER → 2022-01-05 | Outpatient (CLI) | payer MEDICARE ==
[2022-01-05 14:55] LABS: HCT 44.7 % (37.2-46.3); HGB 14.4 g/dL (12.0-15.0); MCH 29.2 pg (27.0-32.0); MCHC 32.2 g/dL (32.0-37.0); MCV 90.7 fL (80.0-97.0); Mean Platelet Volume 8.8 fL (9.5-12.2); NRBC Per 100 WBC 0 /100 WBCS (0.0-0.0); Platelet Count 317 X 10*3/uL (140-440); RBC 4.93 X 10*6/uL (4.10-5.20); RDW 12.9 % (11.5-14.5)
[2022-01-05 16:41] LABS: Albumin 4.9 g/dL (3.8-4.9); Albumin/Globulin Ratio 1.98 (1.60-3.17); Anion Gap 11.8 mmol/L (10.00-18.00); BUN/Creat Ratio 8.57 Ratio (12.00-20.00); Blood Urea Nitrogen 5.3 mg/dL (9.0-27.0); Calcium 9.2 mg/dL (8.7-10.3); Carbon Dioxide 24.2 mmol/L (20.0-27.5); Globulin 2.5 g/dL (1.6-3.3); Non-African American GFR(CKD) 97.5 (60.0-200.0); Potassium 4.4 mmol/L (3.5-5.5); Prolactin 6.7 ng/mL (2.800-29.200); T4, Free (Free Thyroxine) 1.43 ng/dL (0.800-1.800); Total Bilirubin 0.3 mg/dL (0.30-1.20); Total Protein 7.4 g/dL (6.2-8.2)
[2022-01-06 10:15] LABS: ACTH <1.50 pg/mL (0.00-45.99)
== END | disposition home or self-care (01) ==
LOC: LABWHC1 10:07
PROVIDERS: ATTEND Internal Medicine Endocrinology, Diabetes & Metabolism
DX: E23.0 Hypopituitarism (principal)
CPT/HCPCS: 36415; 80053; 82024; 82533; 84146; 84305; 84439; 84443; 84480; 85027

== ENCOUNTER → 2022-01-27 | Outpatient (CLI) | payer MEDICARE, OTHER ==
--- NOTE | 2022-01-27 08:52 | MR ---
EXAMINATION TYPE: MR pituitary wo/w con DATE OF EXAM: 01/27/2022 COMPARISON: MRI brain 2012. HISTORY: Hypopituitarism. Abnormal labs. TECHNIQUE: Multiplanar, multisequence images of the brain and brainstem is performed without and with IV contras t, utilizing 6.5 mL intravenous Gadavist . Pituitary gland protocol. FINDINGS: Pituitary gland remains normal in size within the sella turcica. Postcontrast images show n ormal enhancement of the stalk in the midline. There is slightly heterogeneous enhancement without de finitive area of nonenhancement to suggest microadenoma clearly identified. Suprasellar cistern is ma intained. Optic chiasm is not effaced. Midline structures redemonstrate normal morphology. The craniocervical junction remains within juanito l limits. No gross hydrocephalus.. IMPRESSION: No convincing MRI evidence for pituitary microadenoma or macroadenoma
== END | disposition home or self-care (01) ==
LOC: RADMRIMAIN 07:05
PROVIDERS: ATTEND Internal Medicine Endocrinology, Diabetes & Metabolism
DX: E23.0 Hypopituitarism (principal)
CPT/HCPCS: 70553; A9585

== ENCOUNTER → 2022-05-25 | Outpatient (CLI) | payer MEDICARE, OTHER ==
[2022-05-25 19:23] LABS: Basophils # (A) 0.04 X 10*3/uL (0.00-0.10); Basophils % (A) 0.7 %; Eosinophils # (A) 0.04 X 10*3/uL (0.04-0.35); Eosinophils % (A) 0.7 %; HCT 44.4 % (37.2-46.3); HGB 13.7 g/dL (12.0-15.0); Immature Grans, Automated 0.3 %; Lymphocytes # (A) 0.91 X 10*3/uL (0.90-5.00); Lymphocytes % (A) 15.4 %; MCH 29.1 pg (27.0-32.0); MCHC 30.9 g/dL (32.0-37.0); MCV 94.3 fL (80.0-97.0); Mean Platelet Volume 9.6 fL (9.5-12.2); Monocytes # (A) 0.41 X 10*3/uL (0.20-1.00); Monocytes % (A) 6.9 %; NRBC Per 100 WBC 0 /100 WBCS (0.0-0.0); Neutrophils # (A) 4.49 X 10*3/uL (1.80-7.70); Platelet Count 385 X 10*3/uL (140-440); RBC 4.71 X 10*6/uL (4.10-5.20); RDW 14.4 % (11.5-14.5); WBC 5.91 X 10*3/uL (4.50-10.00)
[2022-05-25 19:49] LABS: African American GFR (CKD) 112.2 (60.0-200.0); Albumin 4.6 g/dL (3.8-4.9); Albumin/Globulin Ratio 1.78 (1.60-3.17); Anion Gap 12.1 mmol/L (10.00-18.00); BUN/Creat Ratio 14.65 Ratio (12.00-20.00); Blood Urea Nitrogen 9.2 mg/dL (9.0-27.0); Calcium 9.5 mg/dL (8.7-10.3); Carbon Dioxide 26.9 mmol/L (20.0-27.5); Globulin 2.6 g/dL (1.6-3.3); Non-African American GFR(CKD) 96.8 (60.0-200.0); Potassium 4.2 mmol/L (3.5-5.5); Prolactin 13.1 ng/mL (2.800-29.200); Total Bilirubin 0.2 mg/dL (0.30-1.20); Total Protein 7.1 g/dL (6.2-8.2)
[2022-05-25 20:35] LABS: INR 0.92 (0.90-1.11); Prothrombin Time 10.4 sec (9.9-11.9)
== END | disposition home or self-care (01) ==
LOC: LABWHC1 10:46
PROVIDERS: ATTEND Internal Medicine Endocrinology, Diabetes & Metabolism
DX: D35.2 Benign neoplasm of pituitary gland (principal); M54.12 Radiculopathy, cervical region
CPT/HCPCS: 36415; 80053; 82024; 83036; 84146; 85025; 85610; 87070

== ENCOUNTER → 2022-07-19 | Outpatient (CLI) | payer MEDICARE, OTHER ==
--- NOTE | 2022-07-20 19:01 | MM ---
Reason for Exam: Screening (asymptomatic). Last screening mammogram was performed 12 month(s) ago. Patient History: Menarche at age 11. First Full-Term at age 26. Postmenopausal. Risk Values: Indira 5 year model risk: 1.8%. NCI Lifetime model risk: 8.6%. Prior Study Comparison: 11/09/2015 Bilateral Screening Mammogram, [facility]. 06/22/2020 Bilateral Screening Mammogram, [facility]. 07/11/2021 Bilateral Screening Mammogram, [facility]. Tissue Density: The breast tissue is heterogeneously dense. This may lower the sensitivity of mammography. Findings: Analyzed By CAD. There is no suspicious group of microcalcifications or new suspicious mass in either breast. Overall Assessment: Negative, BI-RAD 1 Management: Screening Mammogram of both breasts in 1 year. 1. Patient should continue monthly self breast exams. 2. A clinical breast exam by your physician is recommended on an annual basis. 3. This exam should not preclude additional follow-up of suspicious palpable abnormalities. Electronically signed and approved by: Jay Young M.D. Radiologist
== END | disposition home or self-care (01) ==
LOC: RADMAMWWP 13:13
PROVIDERS: ATTEND Family Medicine
DX: Z12.31 Encounter for screening mammogram for malignant neoplasm of breast (principal); Z78.0 Asymptomatic menopausal state
CPT/HCPCS: 77063; 77067

== ENCOUNTER → 2023-02-07 | Outpatient (CLI) | payer MEDICARE, OTHER ==
[2023-02-07 16:28] LABS: ALT 33 U/L (8-44); AST 37 U/L (13-35); Albumin 4.4 d/dL (3.8-4.9); Albumin/Globulin Ratio 1.83 Ratio (1.60-3.17); Alkaline Phosphatase 61 U/L (41-126); BUN/Creat Ratio 11.33 Ratio (12.00-20.00); Blood Urea Nitrogen 6.8 mg/dL (9.0-27.0); Calcium 9.1 mg/dL (8.7-10.3); Carbon Dioxide 24.7 mmol/L (21.6-31.8); Chloride 100 mmol/L (96-109); Globulin 2.4 d/dL (1.6-3.3); Glucose 105 mg/dL (70-110); Potassium 4.4 mmol/L (3.5-5.5); Sodium 138 mmol/L (135-145); T4, Free (Free Thyroxine) 1.03 ng/dL (0.80-1.80); Total Bilirubin <0.2 mg/dL (0.3-1.2); Total Protein 6.8 d/dL (6.2-8.2)
[2023-02-08 01:45] LABS: ACTH 4.14 pg/mL (0.00-45.99)
== END | disposition home or self-care (01) ==
LOC: LABWHC1 09:01
PROVIDERS: ATTEND Internal Medicine Endocrinology, Diabetes & Metabolism
DX: D35.2 Benign neoplasm of pituitary gland (principal); E27.49 Other adrenocortical insufficiency
CPT/HCPCS: 36415; 80053; 82024; 82533; 84146; 84305; 84439; 84443; 84480

== ENCOUNTER → 2023-08-13 | Outpatient (CLI) | payer MEDICARE, OTHER ==
[2023-08-13 15:42] LABS: HCT 36.9 % (37.2-46.3); HGB 10.7 g/dL (12.0-15.0); MCH 25.7 pg (27.0-32.0); MCV 88.5 FL (80.0-97.0); Mean Platelet Volume 9.5 FL (9.5-12.2); NRBC Per 100 WBC 0 X 10*3/uL (0.00-0.01); Platelet Count 487 X 10*3/uL (140-440); RBC 4.17 X 10*6/uL (4.10-5.20); RDW 17.5 % (11.5-14.5); WBC 3.86 X 10*3/uL (4.50-10.00)
[2023-08-13 16:13] LABS: ALT 20 U/L (8-44); AST 21 U/L (13-35); Albumin 4.3 g/dL (3.8-4.9); Albumin/Globulin Ratio 1.95 Ratio (1.60-3.17); Alkaline Phosphatase 51 U/L (41-126); BUN/Creat Ratio 16.33 Ratio (12.00-20.00); Blood Urea Nitrogen 9.8 mg/dL (9.0-27.0); Carbon Dioxide 25.7 mmol/L (21.6-31.8); Chloride 99 mmol/L (96-109); Globulin 2.2 g/dL (1.6-3.3); Glucose 93 mg/dL (70-110); Potassium 4.2 mmol/L (3.5-5.5); Sodium 137 mmol/L (135-145); Total Bilirubin <0.2 mg/dL (0.3-1.2); Total Protein 6.5 g/dL (6.2-8.2)
[2023-08-13 16:14] LABS: T4, Free (Free Thyroxine) 1.02 ng/dL (0.80-1.80)
== END | disposition home or self-care (01) ==
LOC: LABWHC1 12:14
PROVIDERS: ATTEND Internal Medicine Endocrinology, Diabetes & Metabolism
DX: D35.2 Benign neoplasm of pituitary gland (principal); E27.49 Other adrenocortical insufficiency
CPT/HCPCS: 36415; 80053; 82024; 82533; 84146; 84305; 84439; 84443; 84480; 85027

== ENCOUNTER 2023-10-02 13:13 | Emergency (ER) | payer MEDICARE, OTHER ==
[2023-10-02 13:22] VITALS: RESP 16; TEMP 98
--- NOTE | 2023-10-02 14:20 | ED ---
General Adult HPI - General Chief complaint: Chest Pain Stated complaint: Pain in Left side Time Seen by Provider: 10/02/23 13:32 Source: patient, RN notes reviewed Mode of arrival: wheelchair Limitations: no limitations - History of Present Illness Initial comments: Quick Note-this is a 62-year-old female presents emergency department chief complaint of left-sided abdominal and rib pain. She states that she fell roughly 2 weeks ago hitting the left side of her abdomen and chest on the bathtub. States that she has had some dyspnea since this time. Denies chest pain or pressure, palpitations, dizziness, lightheadedness. History of tobacco abuse and COPD. - Related Data Home Medications Medication Instructions Recorded Confirmed Albuterol Inhaler [Ventolin Hfa 1 puff INHALATION RT-Q6H PRN 08/19/20 08/20/20 Inhaler] Budesonide/Formoterol Fumarate 2 puff INHALATION RT-BID 08/19/20 08/20/20 [Symbicort 160-4.5 Mcg Inhaler] DULoxetine HCL [Cymbalta] 120 mg PO QAM 08/19/20 08/21/20 Hydrocodone/Acetaminophen [Moss 1 tab PO Q8H PRN 08/19/20 08/21/20 5-325] Hydrocortisone Cream 1 applic TOPICAL BID 08/19/20 08/20/20 [Hydrocortisone 1% Cream] Ibuprofen [Motrin] 800 mg PO AC-TID 08/19/20 08/21/20 Loratadine 10 mg PO DAILY 08/19/20 08/21/20 Mirtazapine 30 mg PO HS 08/19/20 08/21/20 Pregabalin [Lyrica] 300 mg PO BID 08/19/20 08/21/20 Varenicline [Chantix Starter Pack] See Taper PO DIRECTED 08/19/20 08/21/20 cloNIDine HCL [Catapres] 0.1 mg PO HS 08/19/20 08/21/20 Allergies Allergy/AdvReac Type Severity Reaction Status Date / Time gluten AdvReac Nausea Verified 08/21/20 09:29 Review of Systems ROS Statement: Those systems with pertinent positive or pertinent negative responses have been documented in the HPI. ROS Other: All systems not noted in ROS Statement are negative. Past Medical History Past Medical History: COPD, CVA/TIA, Hypertension Additional Past Medical History / Comment(s): current fx rt wrist, arm in halfcast with patt wrap, CVA at age 48, states has some issues with memory and writing since, past hx of migraines, insomnia, colon polyps History of Any Multi-Drug Resistant Organisms: None Reported Additional Past Surgical History / Comment(s): bilat cataract removal and intraocular lens implants, colonoscopy and polypectomy Past Anesthesia/Blood Transfusion Reactions: No Reported Reaction Past Psychological History: ADD/ADHD, Bipolar, Depression, Schizophrenia Smoking Status: Current every day smoker - Past Family History Father Additional Family Medical History / Comment(s): Father at age 62 from leukemia. Mother Additional Family Medical History / Comment(s): Other in her 80s from lung cancer. Patient has 7 brothers and sisters and one daughter and patient states she doesn't care and does not know anything about them. General Exam - General Exam Comments Initial Comments: Visual Physical Exam Vital signs reviewed General: Well-appearing, nontoxic, no acute distress. Head: Normocephalic, atraumatic Eyes: PERRLA, EOMI ENT: Airway patent Chest: Nonlabored breathing Skin: No visual rash, normal skin tone Neuro: Alert and oriented 3 Musculoskeletal: No gross abnormalities Limitations: no limitations Course Vital Signs 10/02/23 13:18 Temperature 98.0 F Pulse Rate 85 Respiratory 16 Rate Blood Pressure 123/71 O2 Sat by Pulse 97 Oximetry Medical Decision Making - Medical Decision Making I completed the quick note portion of this chart signed Niki Crenshaw PA-C Disposition Clinical Impression: Rib pain on left side Disposition: HOME SELF-CARE Condition: Good Instructions (If sedation given, give patient instructions): Costochondritis (ED) Additional Instructions: Return to the emergency department if your symptoms worsen or not improve. Continue to follow with your pain management. Is patient prescribed a controlled substance at d/c from ED?: No Referrals: Dave Luevano Jr, DO [Primary Care Provider] - 1-2 days Time of Disposition: 17:03
--- NOTE | 2023-10-02 14:44 | XR ---
EXAMINATION TYPE: XR ribs LT w pa chest xray, 5 views DATE OF EXAM: 10/02/2023 Comparison: 08/21/2020 Clinical History: 62-year-old female fall, left sided rib pain Findings: Heart normal size. Aorta and pulmonary vasculature within normal limits. Bullous emphysema at the api yasmine. Hazy lower lung densities likely related to overlying soft tissue and/or underlying scarring. Un changed from prior 2020 exam. No new consolidation or pleural effusion. No displaced left rib fracture seen. Moderate degenerative change AC joint. Impression: Chronic changes, suspect bullous emphysema and some chronic scarring in the lower lungs. No acute car diopulmonary process. No displaced left rib fracture seen.
[2023-10-02] MEDS: LIDOCAINE 4% PATCH TOPICAL ONE (16:53)
[2023-10-02] MEDS: HYDROmorphone 0.5 MG/0.5 ML SYRINGE IM STA (17:02)
[2023-10-02 17:17] VITALS: PULSE 78
[2023-10-02 18:01] VITALS: BP 122/57
== END 2023-10-02 18:01 | disposition home or self-care (01) ==
LOC: EC 13:13
DX: R07.81 Pleurodynia (principal); F17.200 Nicotine dependence, unspecified, uncomplicated; Z88.8 Allergy status to other drugs, medicaments and biological substances
CPT/HCPCS: 71101; 99284; 96372; J1170

== ENCOUNTER → 2024-09-08 | Outpatient (CLI) | payer MEDICARE, OTHER ==
--- NOTE | 2024-09-08 11:43 | BD ---
EXAMINATION TYPE: Axial Bone Density DATE OF EXAM: 09/08/2024 CLINICAL HISTORY: 63 years old Female. ICD-10 CODE: M81.0 AGE RELATED OSTEO , Additional History: Height: 64.2 Weight: 106 FRAX RISK QUESTIONS: Family History (Parent hip fracture): yes History of Fracture in Adulthood: yes Secondary Osteoporosis: 3. Menopause before 45: at 45 RISK FACTORS HISTORY OF: History of Wrist Fracture: yes, bilateral When: age 59 and age 60 Surgery to Spine/Hip(right/left)/Wrist (right/left): right wrist When: age 60 MEDICATIONS: EXAM MEASUREMENTS: Bone mineral densitometry was performed using the [employer] System. Bone mineral density as measured about the Lumbar spine is: ----- L1-L4(G/cm2): 0.977 T Score Values are as follows: ----- L1: -2.2 ----- L2: -2.1 ----- L3: -1.1 ----- L4: -1.6 ----- L1-L4: -1.7 Z Score Values are as follows: ----- L1: -0.2 ----- L2: -0.1 ----- L3: 0.9 ----- L4: 0.5 ----- L1-L4: 0.4 Bone mineral density has: Decreased -0.5% since study of: 09-01-22 Bone mineral density about the R hip (g/cm2): 0.685 Bone mineral density about the L hip (g/cm2): 0.658 T Score values are as follows: -----R Neck: -3.1 -----L Neck: -2.9 -----R Total: -2.6 -----L Total: -2.8 Z Score values are as follows: -----R Neck: -1.3 -----L Neck: -1.1 -----R Total: -1.0 -----L Total: -1.2 Bone mineral density has: Decreased -1.3% since study of: 09-01-22 FRAX%s: The graph provided illustrates a 37.7% chance for a major osteoporotic fx and a 8.3% chance f or the hips probability for fx in 10 years time. IMPRESSION: Osteoporosis (T Score less than -2.5) in both hips remains present. There is increased fracture risk and therapy is usually indicated based on age. Re-Screen 1-2 years. NOTE: T-SCORE=SD OF THE YOUNG ADULT MEAN. [facility], Workstation: 3, 09/08/2024 11:41 AM
--- NOTE | 2024-09-08 13:41 | MM ---
Reason for Exam: Screening (asymptomatic). Last mammogram was performed 2 year(s) and 2 month(s) ago. Patient History: Menarche at age 11. First Full-Term at age 26. Postmenopausal. Risk Values: Indira 5 year model risk: 1.9%. NCI Lifetime model risk: 8.1%. Prior Study Comparison: 06/22/2020 Bilateral Screening Mammogram, [facility]. 07/11/2021 Bilateral Screening Mammogram, [facility]. 07/19/2022 Bilateral MG 3D screening mammo w/cad, [facility]. Tissue Density: The breasts are heterogeneously dense, which may obscure small masses. Findings: Analyzed By CAD. Benign-appearing vascular calcifications bilaterally is redemonstrated. There is no suspicious group of microcalcifications or new suspicious mass in either breast. Overall Assessment: Negative, BI-RAD 1 Management: Screening Mammogram of both breasts in 1 year. . Patient should continue monthly self-breast exams. A clinical breast exam by your physician is recommended on an annual basis. This exam should not preclude additional follow-up of suspicious palpable abnormalities. Note on Indira scores and lifetime risk: 1. A Indira score greater than 3% is considered moderate risk. If this is the case, consider specialist referral to assess eligibility for a risk reducing agent. 2. If overall lifetime risk for the development of breast cancer is 20% or higher, the patient may qualify for future screening with alternating mammogram and breast MRI. [facility], , 09/08/2024 1:38 PM. Electronically signed and approved by: Marvin Maldonado M.D.
--- NOTE | 2024-09-08 15:43 | CTL ---
EXAMINATION TYPE: CT Low Dose Lung DATE OF EXAM: 09/08/2024 12:37 PM COMPARISON: None. CLINICAL INDICATION: Female, 63 years old with history of Z12.2 F17.210, personal tobacco use, Histor y of tobacco use. Current smoker with 20 pack-year history TECHNIQUE: Low dose computed tomography scan was performed through the chest at 1 mm thick sections a nd reconstructed images in multiple planes at 1 mm and [address] DLP: 38 mGycm, CT CTDI: 1.0 mGy, Automated exposure control for dose reduction was used. CT DIAGNOSTIC QUALITY: Satisfactory FINDINGS: The heart is normal size without pericardial effusion. There may be some scattered RCA coronary arter y calcifications. Aorta normal caliber with mild atherosclerotic arch calcifications and conventional arch vessel branc sandro anatomy. Large caliber main right and left pulmonary arteries up to 2.6 cm suggesting underlying pulmonary art erial hypertension. There are advanced emphysematous changes. Biapical pleural parenchymal scarring. 4 mm nodule right upper lobe, axial image 74. 4 mm pulmonary nodule posterior right midlung, axial image 192. No consolidation or pleural effusion. Visualized upper abdomen with possible partially visualized cyst left liver lobe measuring at least 7 mm. Bones: Mild degenerative disc disease lower thoracic spine. IMPRESSION: 1. LungRADS 2, benign. A couple 4 mm pulmonary nodules on baseline screening. 2. COPD with advanced emphysema. Advise smoking cessation. Possible underlying pulmonary arterial hyp ertension. CT LUNG RAD AND CT CHEST RECOMMENDATION: Lung-Rad 2 Benign Appearance or Behavior: Continue annual sc reening with LDCT in 12 months. S Modifier (other clinically significant findings): None [facility], Workstation: [facility], 09/08/2024 3:40 PM
== END | disposition home or self-care (01) ==
LOC: RADMAMWWP 10:51
PROVIDERS: ATTEND Internal Medicine Geriatric Medicine
DX: Z12.31 Encounter for screening mammogram for malignant neoplasm of breast (principal); Z12.2 Encounter for screening for malignant neoplasm of respiratory organs; M81.0 Age-related osteoporosis without current pathological fracture; F17.210 Nicotine dependence, cigarettes, uncomplicated; R92.333 Mammographic heterogeneous density, bilateral breasts; Z78.0 Asymptomatic menopausal state; J44.9 Chronic obstructive pulmonary disease, unspecified; J43.9 Emphysema, unspecified; R91.8 Other nonspecific abnormal finding of lung field
CPT/HCPCS: 71271; 77063; 77067; 77080